=== PATIENT | female | born 1960 | race Caucasian/White ===

== ENCOUNTER 2020-12-22 11:15 | Outpatient (REF) | payer OTHER, SELFPAY ==
[2020-12-22 13:46] LABS: C Reactive Protein 0.25 mg/dL (< or = 0.50)
[2020-12-22 13:58] LABS: Erythrocyte Sedimentation Rate 11 MM/HR (0-20)
== END 2020-12-22 11:16 | disposition home or self-care (01) ==
LOC: HO.LAB 11:15
PROVIDERS: PCP Nurse Practitioner; Visit Provider Specialist
DX: M31.6 Other giant cell arteritis (principal)
CPT/HCPCS: 36415; 85652; 86140